=== PATIENT | female | born 1965 | race Caucasian/White ===

== ENCOUNTER 2020-03-13 04:10 | Emergency (ER) | payer BC, SELFPAY ==
[2020-03-13 04:22] LABS: Appearance Urine Sl Cloudy (Clear); Bilirubin Urine Negative (Negative); Color Urine Yellow (Yellow); Glucose Urine UA Negative (Negative); Ketones Urine Negative (Negative); Leukocyte Esterase Ur 3+ LEU/UL (Negative); Nitrate Urine Negative (Negative); Protein Urine Negative (Negative); Specific Grav Ur <= 1.005 (1.010-1.020); Urobilinogen Urine 0.2 mg/dL (0.2-1.0)
[2020-03-13 04:23] VITALS: BP 140/77; PULSE 68; RESP 16; TEMP 36.8; O2SAT 98
[2020-03-13 04:29] LABS: Add Urine Microscopic? YES; Bacteria Urine 1+ /hpf; Blood Urine Trace-Intact (Negative); RBC Urine 0-2 /hpf (0-2); Squamous Epithelial Cell Urine None seen /hpf (Few); WBC Urine >75 /hpf (0-3)
--- NOTE | 2020-03-13 04:49 | ED.FEMALEGU ---
HPI - Female Genitourinary General Chief complaint: Urogenital-Female Stated complaint: Urinary symptoms Source: patient Mode of arrival: ambulatory Limitations: no limitations History of Present Illness HPI Narrative: pt states symptoms started 2 weeks ago. Saw PMD this week and had urinalysis, but hasnt heard from office yet. no feveres no N/v MD elicited complaint: dysuria and UTI Onset (ago): week(s) Vaginal discharge: none Vaginal bleeding: none Urinary symptoms: Dysuria Exacerbating factors: none Relieving factors: none Associated symptoms: denies other symptoms Related Data Allergies Allergy/AdvReac Type Severity Reaction Status Date / Time No Known Allergies Allergy Unverified 02/17/18 09:50 Review of Systems Constitutional: Constitutional: Reports no additional constitutional complaints Eyes: Eyes: Reports no additional eye complaints ENT: Reports system reviewed and no additional complaints, except as documented Cardiovascular: Cardiovascular: Reports no additional cardiovascular complaints Respiratory: Respiratory: Reports no additional respiratory complaints Gastrointestinal: Gastrointestinal: Reports no additional gastrointestinal complaints, Reports abdominal pain, Denies constipation, Denies diarrhea, Denies nausea and Denies vomiting Genitourinary: Genitourinary: Denies abnormal vaginal bleeding, Reports nocturia, Denies genital lesions, Reports dysuria, Denies pelvic pain, Denies urinary incontinence and Denies vaginal discharge Musculoskeletal: Musculoskeletal: Reports no additional musculoskeletal complaints Neurologic: Reports system reviewed and no additional complaints, except as documented Psychiatric: Psychiatric: Reports no additional psychiatric complaints Endocrine: Endocrine: Reports no additional endocrine complaints Hematologic/Lymphatic: Hematologic/Lymphatic: Reports no additional hematologic/lymphatic complaints Allergic/Immunologic: Allergic/Immunologic: Reports no additional allergic/immunologic complaints [facility] Past Medical History Medical History (Updated 03/13/20 @ 04:54 by Alice Stewart MD) UTI (urinary tract infection) Social History Social History Smoking status: Never smoker Alcohol intake: never Exam Const: General: no acute distress and alert Orientation/consciousness: patient oriented x3 HENMT: Head: normal to inspection Eyes: Conjunctivae: conjunctivae normal Pupils: Equal, round and reactive pupils present Chest: Chest palpation & inspection: normal inspection of the chest Resp: Effort & Inspection: normal respiratory effort Auscultation: clear to auscultation bilaterally Cardio: Rate: regular rate Rhythm: regular rhythm GI: GI Palp: Yes Soft to palpation, Yes Tenderness to palpation present (GI) (mild superpubic) and No Guarding due to palpation present (GI) Auscultation: normal bowel sounds : General: Yes no CVA tenderness Back/Spine/Pelvis: Back: no CVA tenderness Skin: General skin exam: normal color Neuro: General: patient oriented x3 and moves all extremities Speech: normal speech Extrem: General: normal to inspection Psych: Mental Status: mental status grossly normal Thought content: Yes Normal thought content present Judgement: Good judgement present (Psych) Course Vital Signs Vital signs: Vital Signs Temperature 36.8 C 03/13/20 04:23 Pulse Rate 68 03/13/20 04:23 Respiratory Rate 16 03/13/20 04:23 Blood Pressure 140/77 03/13/20 04:23 Pulse Oximetry 98 03/13/20 04:23 Temperature 36.8 C 03/13/20 04:23 Pulse Rate 68 03/13/20 04:23 Respiratory Rate 16 03/13/20 04:23 Blood Pressure 140/77 03/13/20 04:23 Pulse Oximetry 98 03/13/20 04:23 MDM - Female Genitourinary Differential Diagnosis Differential diagnosis: Likely urinary tract infection Lab Data Labs: Lab Results 03/13/20 Range/Units 04:19 Ur
== END 2020-03-13 05:06 | disposition home or self-care (01) ==
PROVIDERS: Emergency Provider Emergency Medicine; PCP Internal Medicine
DX: N39.0 Urinary tract infection, site not specified (principal)
CPT/HCPCS: 81001; 87077; 87086; 87088; 87186; 99283

== ENCOUNTER 2020-07-27 07:57 | Outpatient (CLI) | payer BC, SELFPAY ==
--- NOTE | ~2020-07-27 | XR_ITS ---
XR foot LT min 3V 07/27/2020 08:53 Indication: Left foot pain Procedure: 4 views left foot Comparison: No prior studies for comparison. Findings: Mild osteoarthritis of the fifth first MTP joint. Normal mineralization. Lisfranc joint int act. No acute fracture or traumatic malalignment. Small degenerative calcaneal enthesophytes. Mild os teoarthritis of the midfoot. 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 Reviewed, dictated and finalized at location A. 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
--- NOTE | ~2020-07-27 | XR_ITS ---
XR lumbar spine 2-3V 07/27/2020 08:54 Indication: Low back pain for 2 months. Procedure: 3 views lumbar spine Comparison: 08/12/2018 Findings: There is mild disc narrowing at L2-3 and L3-4. There are facet hypertrophic changes at L3-4 , L4-5 and L5-S1. No fracture or traumatic malalignment. No evidence for spondylolisthesis. Pedicles intact. Impression: 1: Mild-moderate lumbar spondylosis. Reviewed, dictated and finalized at location A. K RANDER Impression: 1: Mild-moderate lumbar spondylosis.
--- NOTE | ~2020-07-27 | XR_ITS ---
XR hip RT min 2V 07/27/2020 08:53 Indication: Right hip pain Procedure: 2 views right hip Comparison: No prior studies for comparison. Findings: Mild-moderate osteoarthritis of the right hip. No fracture or traumatic malalignment. Sacra l foramen are symmetric. Mild osteitis pubis. Impression: 1: Mild-moderate osteoarthritis of the right hip. Reviewed, dictated and finalized at location A. UNITY ASSOCIATE Impression: 1: Mild-moderate osteoarthritis of the right hip.
[2020-07-27 08:20] LABS: Hematocrit 40.7 % (35.0-49.0); Hemoglobin 13.4 g/dL (12.0-15.0); Mean Corpuscular HGB Conc 32.9 g/dL (32.0-36.0); Mean Corpuscular Hemoglobin 30.7 pg (27.0-31.0); Mean Corpuscular Volume 93.1 fL (78.0-102.0); Mean Platelet Volume 9.7 fl (9.2-11.8); Platelet Count Result 320 K/mm3 (150-420); Red Blood Count 4.37 M/mm3 (4.20-5.40); Red Cell Distribution Width 12.2 % (11.6-14.4); White Blood Count 3.7 K/mm3 (4.8-10.8)
[2020-07-27 08:22] LABS: Add Urine Microscopic? NO; Appearance Urine Clear (Clear); Bilirubin Urine Negative (Negative); Blood Urine Negative (Negative); Color Urine Yellow (Yellow); Glucose Urine UA Negative (Negative); Ketones Urine Negative (Negative); Leukocyte Esterase Ur Negative (Negative); Nitrate Urine Negative (Negative); Protein Urine Negative (Negative); Specific Grav Ur 1.015 (1.010-1.020); Urobilinogen Urine 0.2 mg/dL (0.2-1.0)
[2020-07-27 09:10] LABS: Band Neutrophils Percent 0 % (0-6); Basophils Percent Manual 0 % (0-1); Eosinophils Absolute Manual 0.11 K/mm3 (0.02-0.5); Eosinophils Percent Manual 3 % (1-6); Lymphocytes Absolute Manual 1.22 K/mm3 (1.1-4.5); Lymphocytes Percent Manual 33 % (18-44); Monocytes Percent Manual 11 % (3-9); Neutrophils Absolute Manual 1.96 K/mm3 (1.7-7.2); Neutrophils Percent Manual 53 % (46-73); Platelet Estimate Adequate (Adequate); Total Cells Counted 100
[2020-07-27 09:23] LABS: Alanine Aminotransferase 15 U/L (14-59); Albumin Level 3.8 g/dL (3.4-5.0); Alkaline Phosphatase 116 U/L (46-116); Anion Gap 9 mmol/L (8-16); Aspartate Amino Transferase 11 U/L (15-37); Bilirubin,Total 0.5 mg/dL (0.00-1.00); Blood Urea Nitrogen 17 mg/dL (7-18); Calcium 9.3 mg/dL (8.5-10.1); Carbon Dioxide 27 mmol/L (21-32); Chloride 105 mmol/L (98-108); Cholesterol 252 mg/dL (0-200); Estimated Glomerular Filt Rate > 60; Glucose 95 mg/dL (70-99); HDL Direct 58 mg/dL (40-60); LDL Cholesterol Calculated 174 mg/dL (<130); Osmolality Calculated 293 mOsm/kg (285-295); Potassium 4.5 mmol/L (3.5-5.1); Sodium 141 mmol/L (136-145); Thyroid Stimulating Hormone 1.55 uIU/mL (0.36-3.74); Total Protein 7.3 g/dL (6.4-8.2); Triglycerides 100 mg/dL (0-150)
== END 2020-07-27 07:58 | disposition home or self-care (01) ==
PROVIDERS: PCP Internal Medicine; Visit Provider Internal Medicine
DX: M79.672 Pain in left foot (principal); M25.551 Pain in right hip; M54.5 Low back pain; Z00.00 Encounter for general adult medical examination without abnormal findings
CPT/HCPCS: 36415; 72100; 73502; 73630; 80053; 80061; 81003; 84443; 85025

== ENCOUNTER 2020-09-16 17:05 | Outpatient (CLI) | payer BC, SELFPAY ==
[2020-09-16 18:26] LABS: SARS-CoV-2 Ag Positive (Negative)
== END 2020-09-16 17:06 | disposition home or self-care (01) ==
LOC: CHSLAB 17:10
PROVIDERS: PCP Internal Medicine; Visit Provider Internal Medicine
DX: U07.1 COVID-19 (principal)
CPT/HCPCS: 87426; C9803

== ENCOUNTER → 2020-11-08 13:50 | Outpatient (CLI) | payer BC, SELFPAY ==
--- NOTE | ~2020-11-08 | MM_ITS ---
EXAMINATION: MM screening [facility] BI w marbin HISTORY: Screening TECHNIQUE: Craniocaudal and mediolateral oblique 3-D tomosynthesis images were obtained and synthetic 2-D images were generated. CAD analysis was submitted and interpreted. COMPARISON: Comparison to multiple prior studies sequentially, with oldest reviewed study dated 02/2014. BREAST PARENCHYMAL COMPOSITION: There are scattered areas of fibroglandular density. FINDINGS: There is no evidence of suspicious mass, calcification, or architectural distortion to sugg est malignancy in either breast. There has been no suspicious interval change. IMPRESSION: 1. No mammographic evidence of malignancy. 2. Recommend routine screening mammography in one year. BI-RADS Category 1: Negative Reviewed, dictated and finalized at location A.
== END ==
PROVIDERS: PCP Internal Medicine; Visit Provider Obstetrics & Gynecology
DX: Z12.31 Encounter for screening mammogram for malignant neoplasm of breast (principal)
CPT/HCPCS: 77063; 77067

== ENCOUNTER 2021-08-12 13:41 | Outpatient (RCR) | payer BC, SELFPAY ==
--- NOTE | 2021-08-12 14:41 | PTOPEVAL ---
Thank you for referring Ruma Copeland to [facility].? The patient is scheduled to be seen for therapy? ____x/week for ___ weeks. Please review, sign, date and return this plan of care NEAL. I agree with and certify that the following plan of care is medically necessary. Referring Physician Date Admitting Provider: Attending Provider: Haroon Van, MD Referring Provider: *PT Outpatient Evaluation Start: 08/12/21 13:48 Freq: Status: Active Protocol: Document 08/12/21 13:48 ACR (Rec: 08/12/21 14:41 ACR [id number]) Therapy Assessment Status Assessment Status Assessment Status Evaluation Evaluation Information Problem Diagnosis low back pain Onset 07/13/21 Subjective Information Patient states that she Query Text:As Reported By Patient/ started having some back pain Family about a year ago and was told it was arthrtis. She states that she bent down to cook pickled meat a child and had difficulty getting up. She states that she has difficulty getting up from a seated position especially when in a car. She states that walking or standing for a period of time do not bother her. She states that she has difficulty with sleeping because it is constantly throbbing. Patient states that she also has some hip pain on the L but it comes and goes. Prior Level of Function Activity Level (Last 3 Months) Occupation daycare picking crew supervisor Hand Dominance Right Activity of Daily Living Ability Independent Indoor/Home Mobility Independent Community Mobility Independent Stairs Ability Independent Functional Cognition (Planning, Shopping Independent , Taking Medications) Cooking Yes Cleaning Yes Laundry Yes Shopping Yes Driving Yes Pain Assessment Timing of Pain Assessment Timing of Pain Assessment Assessment Pain Scale Pain Scale Used Numeric (1 - 10) Self Report Pain Assessment Lower Back Reported Pain Level 7 Pain Description Sharp,Shooting Greatest Pain Intensity 10 Pain Score Pain Score 7: Self Report Interventions Used Interventions Used By Clinicians
== END 2021-08-21 08:45 | disposition home or self-care (01) ==
LOC: CHSPT 13:41
PROVIDERS: PCP Family Medicine; Visit Provider Family Medicine
DX: M54.50 Low back pain, unspecified (principal)
CPT/HCPCS: 97014; 97110; 97161; G0283

== ENCOUNTER → 2021-08-19 15:35 | Outpatient (CLI) | payer BC, SELFPAY ==
--- NOTE | ~2021-08-19 | XR_ITS ---
EXAMINATION: XR lumbar spine 2-3V DATE: 08/19/2021 15:54 INDICATION: Low back pain TECHNIQUE: Anteroposterior and lateral views of the lumbar spine, and cone-down lateral view of the l umbosacral junction were obtained. COMPARISON: 07/27/2020 FINDINGS: There is no fracture, dislocation, or subluxation. The vertebral body heights and alignment are normal. There is mild loss of intervertebral disc space height throughout the lumbar spine. Ther e is moderate facet osteoarthritis of the lower lumbar spine. Small degenerative osteophytes project from the anterior endplates of multiple vertebral bodies. Phleboliths are noted in the pelvis. IMPRESSION: 1. Mild lumbar spondylosis without acute findings or significant interval change. Reviewed, dictated and finalized at location F. RAM MANAGEMENT SPECIALIST IMPRESSION: 1. Mild lumbar spondylosis without acute findings or significant interval miner zia
== END ==
PROVIDERS: PCP Family Medicine; Visit Provider Family Medicine
DX: M54.50 Low back pain, unspecified (principal); M47.816 Spondylosis without myelopathy or radiculopathy, lumbar region
CPT/HCPCS: 72100

== ENCOUNTER 2022-09-10 18:10 | Outpatient (CLI) | payer BC, SELFPAY ==
[2022-09-10 19:04] LABS: SARS-CoV-2 RNA PCR Positive (Negative)
== END 2022-09-10 18:11 | disposition home or self-care (01) ==
LOC: CHSLAB 18:11
PROVIDERS: PCP Internal Medicine; Visit Provider Internal Medicine
DX: U07.1 COVID-19 (principal); J06.9 Acute upper respiratory infection, unspecified
CPT/HCPCS: U0003; U0005

== ENCOUNTER 2022-09-26 07:04 | Outpatient (CLI) | payer BC, SELFPAY ==
--- NOTE | ~2022-09-26 | XR_ITS ---
EXAMINATION: XR chest 2V DATE: 09/26/2022 07:29 INDICATION: Fatigue TECHNIQUE: PA and lateral views of the chest are obtained. COMPARISON: 12/24/2017 FINDINGS: There is mild atelectasis of the lower lobes. No pleural effusion or pneumothorax. The card iomediastinal silhouette is normal. There is mild thoracic spondylosis. IMPRESSION: 1. Mild atelectasis of the lower lobes. Reviewed, dictated and finalized at location A. ECTOR RECEIVING
[2022-09-26 07:21] LABS: Basophils Absolute Auto 0.04 K/mm3 (0.00-0.10); Basophils Percent Auto 0.7 % (0.0-1.0); Eosinophils Absolute Auto 0.31 K/mm3 (0.02-0.50); Eosinophils Percent Auto 5.2 % (1.0-6.0); Hematocrit 39.6 % (35.0-49.0); Hemoglobin 12.9 g/dL (12.0-15.0); Immature Granulocyte Absolute 0.01 K/mm3 (0.00-0.00); Immature Granulocyte Percent A 0.2 % (0.0-0.0); Lymphocytes Absolute Auto 1.42 K/mm3 (1.10-4.50); Lymphocytes Percent Auto 23.9 % (18.0-42.0); Mean Corpuscular HGB Conc 32.6 g/dL (32.0-36.0); Mean Corpuscular Hemoglobin 30.9 pg (27.0-31.0); Mean Corpuscular Volume 94.7 fL (78.0-102.0); Mean Platelet Volume 9.3 fl (9.2-11.8); Monocytes Absolute Auto 0.51 K/mm3 (0.10-0.90); Monocytes Percent Auto 8.6 % (2.0-11.0); Neutrophils Absolute Auto 3.6 K/mm3 (1.7-7.2); Neutrophils Percent Auto 61.4 % (50.0-70.0); Platelet Count Result 334 K/mm3 (150-420); Red Blood Count 4.18 M/mm3 (4.20-5.40); Red Cell Distribution Width 12.8 % (11.6-14.4); White Blood Count 5.9 K/mm3 (4.8-10.8)
[2022-09-26 07:33] LABS: Bilirubin Urine Negative (Negative); Blood Urine Trace-Intact (Negative); Glucose Urine UA Negative (Negative); Ketones Urine Negative (Negative); Leukocyte Esterase Ur Negative (Negative); Nitrate Urine Positive (Negative); Protein Urine Negative (Negative); Urobilinogen Urine 0.2 mg/dL (0.2-1.0)
[2022-09-26 07:37] LABS: Add Urine Microscopic? YES; Appearance Urine Slightly Cloudy (Clear); Bacteria Urine 3+ /hpf; Color Urine Yellow (Yellow); RBC Urine None seen /hpf (0-2); Squamous Epithelial Cell Urine Occasional /hpf (Few); WBC Urine 51-75 /hpf (0-3)
[2022-09-26 08:09] LABS: Alanine Aminotransferase 18 U/L (14-59); Albumin Level 3.8 g/dL (3.4-5.0); Alkaline Phosphatase 99 U/L (46-116); Anion Gap 5 mmol/L (8-16); Aspartate Amino Transferase 15 U/L (15-37); Bilirubin,Total 0.5 mg/dL (0.00-1.00); Blood Urea Nitrogen 12 mg/dL (7-18); Carbon Dioxide 32 mmol/L (21-32); Chloride 105 mmol/L (98-108); Cholesterol 267 mg/dL (0-200); Estimated Glomerular Filt Rate > 60; Free T3 2.65 pg/mL (2.18-3.98); Free T4 Free Thyroxine 0.75 ng/dL (0.76-1.46); Glucose 90 mg/dL (70-99); HDL Direct 71 mg/dL (40-60); LDL Cholesterol Calculated 177 mg/dL (<130); Osmolality Calculated 293 mOsm/kg (285-295); Potassium 4.8 mmol/L (3.5-5.1); Sodium 142 mmol/L (136-145); Thyroid Stimulating Hormone 1.99 uIU/mL (0.36-3.74); Total Protein 7.2 g/dL (6.4-8.2); Triglycerides 97 mg/dL (0-150)
[2022-09-26 08:10] LABS: CRP < 0.5 mg/dL (0.0-0.9)
== END 2022-09-26 07:05 | disposition home or self-care (01) ==
LOC: CHSIMG 07:06
PROVIDERS: PCP Internal Medicine; Visit Provider Internal Medicine
DX: R53.83 Other fatigue (principal); L65.9 Nonscarring hair loss, unspecified; J98.11 Atelectasis
CPT/HCPCS: 36415; 71046; 80053; 80061; 81001; 84439; 84443; 84481; 85025; 86140

== ENCOUNTER → 2023-07-24 10:44 | Outpatient (CLI) | payer BC, SELFPAY ==
--- NOTE | ~2023-07-24 | MM_ITS ---
EXAMINATION: MM screening [facility] BI w marbin HISTORY: Screening mammogram TECHNIQUE: Craniocaudal and mediolateral oblique 3-D tomosynthesis images were obtained and synthetic 2-D images were generated. CAD analysis was submitted and interpreted. COMPARISON: 11/08/2020, 08/10/2019, 08/03/2018 BREAST PARENCHYMAL COMPOSITION: There are scattered areas of fibroglandular density. FINDINGS: No suspicious mass, calcification, or architectural distortion are identified in either neetu ast to suggest malignancy. There has been no suspicious interval change. IMPRESSION: 1. No mammographic evidence of malignancy. 2. Recommend routine screening mammography in one year. BI-RADS Category 1: Negative Reviewed, dictated and finalized at location A. S SUPPORT ASSOCIATE
== END ==
PROVIDERS: PCP Obstetrics & Gynecology; Visit Provider Obstetrics & Gynecology
DX: Z12.31 Encounter for screening mammogram for malignant neoplasm of breast (principal)
CPT/HCPCS: 77063; 77067

== ENCOUNTER 2023-10-02 08:27 | Outpatient (CLI) | payer BC, SELFPAY ==
[2023-10-02 08:47] LABS: Basophils Absolute Auto 0.05 K/mm3 (0.00-0.10); Basophils Percent Auto 1.2 % (0.0-1.0); Eosinophils Absolute Auto 0.27 K/mm3 (0.02-0.50); Eosinophils Percent Auto 6.3 % (1.0-6.0); Hematocrit 41.2 % (35.0-49.0); Hemoglobin 13.4 g/dL (12.0-15.0); Immature Granulocyte Absolute 0.01 K/mm3 (0.00-0.00); Immature Granulocyte Percent A 0.2 % (0.0-0.0); Lymphocytes Percent Auto 32.9 % (18.0-42.0); Mean Corpuscular HGB Conc 32.5 g/dL (32.0-36.0); Mean Corpuscular Hemoglobin 30.7 pg (27.0-31.0); Mean Corpuscular Volume 94.3 fL (78.0-102.0); Mean Platelet Volume 9.4 fl (9.2-11.8); Monocytes Absolute Auto 0.44 K/mm3 (0.10-0.90); Monocytes Percent Auto 10.3 % (2.0-11.0); Neutrophils Absolute Auto 2.1 K/mm3 (1.7-7.2); Neutrophils Percent Auto 49.1 % (50.0-70.0); Platelet Count Result 348 K/mm3 (150-420); Red Blood Count 4.37 M/mm3 (4.20-5.40); Red Cell Distribution Width 12.4 % (11.6-14.4); White Blood Count 4.3 K/mm3 (4.8-10.8)
[2023-10-02 08:56] LABS: Hemoglobin A1C 5.4 % (<5.7)
[2023-10-02 09:12] LABS: Alanine Aminotransferase 20 U/L (14-59); Albumin Level 3.8 g/dL (3.4-5.0); Alkaline Phosphatase 103 U/L (46-116); Anion Gap 6 mmol/L (8-16); Aspartate Amino Transferase 12 U/L (15-37); Bilirubin,Total 0.6 mg/dL (0.00-1.00); Blood Urea Nitrogen 11 mg/dL (7-18); Calcium 8.9 mg/dL (8.5-10.1); Carbon Dioxide 31 mmol/L (21-32); Chloride 104 mmol/L (98-108); Cholesterol 228 mg/dL (0-200); Estimated Glomerular Filt Rate > 60; Glucose 92 mg/dL (70-99); HDL Direct 80 mg/dL (40-60); LDL Cholesterol Calculated 136 mg/dL (<130); Osmolality Calculated 291 mOsm/kg (285-295); Potassium 4.7 mmol/L (3.5-5.1); Sodium 141 mmol/L (136-145); Thyroid Stimulating Hormone 1.77 uIU/mL (0.36-3.74); Total Protein 6.9 g/dL (6.4-8.2); Triglycerides 59 mg/dL (0-150)
== END 2023-10-02 08:28 | disposition home or self-care (01) ==
PROVIDERS: PCP Internal Medicine; Visit Provider Internal Medicine
DX: Z00.00 Encounter for general adult medical examination without abnormal findings (principal); I10 Essential (primary) hypertension; R63.1 Polydipsia
CPT/HCPCS: 36415; 80053; 80061; 83036; 84443; 85025

== ENCOUNTER 2023-10-06 07:24 | Emergency (ER) | payer BC, SELFPAY ==
--- NOTE | ~2023-10-06 | CT_ITS ---
EXAMINATION: CT abdomen pelvis w con DATE: 10/06/2023 09:11 INDICATION: Severe upper abdominal pain TECHNIQUE: Computed tomography (CT) of the abdomen and pelvis was performed with 100 CC Omnipaque 350 intravenous contrast. Automated exposure control and iterative reconstruction technique were employe d. Exam dose: 400.63 mGy-cm total exam DLP. COMPARISON: 08/17/2018 CT abdomen pelvis FINDINGS: Bilateral fat-containing foramen of Bochdalek hernias. The lung bases are clear of infiltrate or consolidation. Normal heart size. No pericardial or pleural effusion. Large sliding hiatal hernia. Probable duodenal diverticulum. The liver, gallbladder, bile ducts, pancreas, pancreatic duct, spleen, and adrenal glands and kidneys are unremarkable. No urinary tract calculus or hydroureteronephrosis. The urinary bladder, uterus an d adnexal areas are unremarkable. Normal caliber of the abdominal aorta. No intraperitoneal or retroperitoneal or pelvic mass lesion or adenopathy or ascites. No evidence of appendicitis. There is mild thickening of the wall of the mid to distal small bowel with mucosal enhancement. Liqui d stool is noted in the right colon. Consider infectious or inflammatory enterocolitis. No bowel obstruction or intraperitoneal free air.. Bilateral hip osteoarthritis. Degenerative spurring of the thoracic and lumbar spine. There is prominent degenerative changes at th e apophyseal joints of the lower lumbar and lumbosacral area. No suspicious osteolytic or osteoblasti c lesions are noted. IMPRESSION: Large sliding hiatal hernia, increased in size since 08/17/2018 Mild mid to distal small bowel wall thickening and mucosal enhancement, liquid stool in the right col on; consider infectious or inflammatory enterocolitis No evidence of appendicitis Reviewed, dictated and finalized at Location A. Reviewed, dictated and finalized at location B. KTOP PAVER OPERATOR IMPRESSION: Large sliding hiatal hernia, increased in size since 08/17/2018 Mild mid to distal small bowel wall thickening and mucosal enhancement, liquid stool in the right colon; consider infectious or inflammatory enterocolitis No evidence of appendicitis
[2023-10-06 07:29] VITALS: BP 145/88; PULSE 79; RESP 16; O2SAT 100
[2023-10-06 07:38] VITALS: TEMP 36.4
--- NOTE | 2023-10-06 07:40 | ECG_ITS ---
Measurements Intervals [place] Rate: 74 P: 45 CT: 145 QRS: 32 QRSD: 82 T: 48 QT: 386 QTc: 429 Interpretive Statements SINUS RHYTHM NORMAL ECG NO PREVIOUS ECG AVAILABLE FOR COMPARISON Electronically Signed On 10-06-2023 11:52:35 APPOINTMENT SCHEDULER by Fei Disla M.D.
[2023-10-06 07:58] LABS: Basophils Absolute Auto 0.1 K/mm3 (0.0-0.1); Basophils Percent Auto 0.4 % (0.2-1.2); Eosinophils Absolute Auto 0.2 K/mm3 (0-0.3); Eosinophils Percent Auto 1.4 % (0-4.4); Hematocrit 43.1 % (37.0-47.0); Hemoglobin 14.2 g/dL (12.0-15.0); Immature Granulocyte Absolute 0.05 K/mm3 (0.00-0.031); Immature Granulocyte Percent A 0.4 % (0-0.5); Lymphocytes Absolute Auto 0.96 K/mm3 (0.9-3.2); Lymphocytes Percent Auto 6.9 % (18.3-44.2); Mean Corpuscular HGB Conc 32.9 g/dl (32-36); Mean Corpuscular Hemoglobin 31.1 pg (26-34); Mean Corpuscular Volume 94.3 fl (80-100); Mean Platelet Volume 9.6 fl (7.4-10.4); Monocytes Percent Auto 6.9 % (2.6-8.5); Neutrophils Absolute Auto 11.7 K/mm3 (1.3-6.7); Platelet Count Result 346 k/mm3 (150-375); Red Blood Count 4.57 M/mm3 (4.2-5.4); Red Cell Distribution Width 12.3 % (11.5-14.5); White Blood Count 13.9 K/mm3 (4.5-10.0)
[2023-10-06 08:07] LABS: Alanine Aminotransferase 16 U/L (6-35); Albumin Level 4.2 g/dL (3.5-5.1); Alkaline Phosphatase 107 U/L (38-126); Anion Gap 6 mmol/L (8-16); Aspartate Amino Transferase 28 U/L (14-36); Blood Urea Nitrogen 17 mg/dL (7-17); Calcium 9.9 mg/dL (8.4-10.2); Carbon Dioxide 25 mmol/L (22-30); Chloride 105 mmol/L (98-107); Estimated Glomerular Filt Rate > 60; Glucose 113 mg/dL (65-110); Lipase 77 U/L (23-300); Potassium 4.2 mmol/L (3.4-5.0); Sodium 136 mmol/L (137-145)
--- NOTE | 2023-10-06 09:20 | ED.ABDPAIN ---
HPI - Abdominal Pain General Chief Complaint: Abdominal Pain Stated Complaint: super sick Time Seen by Provider: 10/06/23 07:44 History of Present Illness HPI narrative: patient is a 4-year-old female who presents ER with abdominal cramping and pain. Began early this morning. Makes her feel like she needs use restroom. When she was sitting on the toilet she lost consciousness. No fevers or chills or sweats. No radiation to the back. No history of abdominal surgery. No urinary frequency urgency or dysuria. Denies chest pain. Has not found any alleviating factors. Patient does work at a daycare. Related Data Allergies Allergy/AdvReac Type Severity Reaction Status Date / Time No Known Allergies Allergy Verified 10/06/23 07:35 Review of Systems Review of Systems: All systems reviewed & are unremarkable except as noted in HPI and below Constitutional: Constitutional: Reports no additional constitutional complaints ENT: Reports system reviewed and no additional complaints, except as documented Cardiovascular: Cardiovascular: Reports no additional cardiovascular complaints Respiratory: Respiratory: Reports no additional respiratory complaints Gastrointestinal: Gastrointestinal: Reports abdominal pain, Denies diarrhea, Reports nausea and Denies vomiting Neurologic: Reports syncope, Denies headache(s), Denies focal weakness and Denies numbness PMFSH Past Medical History Medical History UTI (urinary tract infection) Surgical History Surgical History History of ear surgery Social History Social History Smoking status: Never smoker Alcohol intake: never Exam Narrative: GENERAL: Uncomfortable-appearing, well-nourished, and in no acute distress. HEAD: Normocephalic, atraumatic. ENT: Nares clear, no rhinorrhea or epistaxis. Mucous membranes moist. NECK: Supple. CHEST: Clear to auscultation. No respiratory distress. HEART: Regular rate and rhythm. Normal peripheral pulses. ABDOMEN: Soft, tender to palpation bilateral lower quadrants without guarding, nondistended, normal active bowel sounds. EXTREMITIES: Normal range of motion. No edema. SKIN: Warm, dry, no rash. NEURO: Alert and oriented x3. PSYCH: Normal mood and affect. Course Course Emergency Course: Patient more comfortable. Hydrate. Informed of results. Discharge home with supportive care. Also discussed hiatal hernia. Vital Signs Vital signs: Vital Signs Pulse Rate 79 10/06/23 07:29 Respiratory Rate 16 10/06/23 07:29 Blood Pressure 145/88 H 10/06/23 07:29 Pulse Oximetry 100 10/06/23 07:29 Oxygen Delivery Room Air 10/06/23 07:29 Temperature 97.6 F 10/06/23 07:38 Pulse Rate 79 10/06/23 07:29 Respiratory Rate 16 10/06/23 07:29 Blood Pressure 145/88 H 10/06/23 07:29 Pulse Oximetry 100 10/06/23 07:29 Oxygen Delivery Room Air 10/06/23 07:29 MDM - Abdominal Pain Lab Data 10/06/23 07:49 10/06/23 07:49 Labs: Lab Results 10/06/23 Range/Units 07:49 WBC 13.9 H (4.5-10.0) K/mm3 RBC 4.57 (4.2-5.4) M/mm3 Hgb 14.2 (12.0-15.0) g/dL Hct 43.1 (37.0-47.0) % MCV 94.3 (80-100) fl MCH 31.1 (26-34) pg MCHC 32.9 (32-36) g/dl RDW 12.3 (11.5-14.5) % Plt Count 346 (150-375) k/mm3 MPV 9.6 (7.4-10.4) fl Immature Gran % (Auto) 0.4 (0-0.5) % Neut % (Auto) 84.0 H (45.5-73.1) % Lymph % (Auto) 6.9 L (18.3-44.2) % Crisp % (Auto) 6.9 (2.6-8.5) % Eos % (Auto) 1.4 (0-4.4) % Baso % (Auto) 0.4 (0.2-1.2) % Lymph # (Auto) 0.96 (0.9-3.2) K/mm3 Crisp # (Auto) 1.0 H (0.1-0.6) K/mm3 Eos # (Auto) 0.2 (0-0.3) K/mm3 Baso # (Auto) 0.1 (0.0-0.1) K/mm3 Abs Immat Gran (auto) 0.05 H (0.00-0.031) K/mm3 Absolute Neuts (auto) 11.7 H (1.3-6.7) K/mm3 Absolute N
[2023-10-06] MEDS: ONDANSETRON INJ 4 MG/2 ML VIAL IV PUSH (09:31)
[2023-10-06] MEDS: MORPHINE SULFATE (*CRX) 4 MG/ML INJ IV PUSH (09:31)
[2023-10-06] MEDS: SODIUM CHLORIDE 0.9% IV 1,000 ML 999 ML IV CONT (09:32)
[2023-10-06 10:45] VITALS: BP 122/64; PULSE 101; RESP 18; O2SAT 100
[2023-10-06 10:51] LABS: Appearance Urine Clear (Clear); Bacteria Urine 4+ /hpf; Bilirubin Urine Negative (Negative); Blood Urine Negative (Negative); Color Urine Yellow (Yellow); Glucose Urine UA Negative (Negative); Ketones Urine Negative (Negative); Leukocyte Esterase Ur 1+ LEU/UL (Negative); Nitrate Urine Positive (Negative); Non Pathogenic Casts 0-2; Protein Urine Negative (Negative); RBC Urine 0-2 /hpf (0-2); Squamous Epithelial Cell Urine None seen /hpf (Few); Urobilinogen Urine 0.2 mg/dL (<2.0); pH Urine 8.5 (5.0-9.0)
[2023-10-06 10:52] LABS: Specific Grav Ur 1.036 (1.001-1.035)
[2023-10-06 10:53] LABS: Add Urine Microscopic? YES
== END 2023-10-06 10:46 | disposition home or self-care (01) ==
PROVIDERS: Emergency Provider Emergency Medicine; PCP Internal Medicine
DX: R55 Syncope and collapse (principal); K52.9 Noninfective gastroenteritis and colitis, unspecified
CPT/HCPCS: 36415; 74177; 80053; 81001; 83690; 85025; 87077; 87086; 87186; 93005; 96361; 96374; 96375; 99284; J2270; J2405; J7030; Q9967

== ENCOUNTER 2023-12-20 16:40 | Outpatient (CLI) | payer BC, SELFPAY ==
--- NOTE | ~2023-12-20 | XR_ITS ---
Right Knee Technique: AP, lateral, and sunrise views were obtained. Clinical History: Pain Findings: No fracture or dislocation is seen. Osseous alignment is anatomic. Minimal degenerative spu rring noted about the knee. Soft tissues are unremarkable. No joint effusion is seen. Impression: Minimal degenerative spurring throughout the knee. Reviewed, dictated and finalized at [facility]. Impression: Minimal degenerative spurring throughout the knee.
== END 2023-12-20 16:41 | disposition home or self-care (01) ==
PROVIDERS: PCP Internal Medicine; Visit Provider Internal Medicine
DX: M25.561 Pain in right knee (principal); M76.891 Other specified enthesopathies of right lower limb, excluding foot
CPT/HCPCS: 73564

== ENCOUNTER 2024-09-30 08:34 | Outpatient (CLI) | payer BC, SELFPAY ==
--- NOTE | ~2024-09-30 | XR_ITS ---
EXAM: XR lumbar spine 2-3V DATE: 09/30/2024 08:59 HISTORY: LBP radiates into Rt. hip, NKI . COMPARISON: 08/19/2021. FINDINGS: 5 nonrib-bearing lumbar-type vertebral bodies. Pedicles intact. 4 mm anterolisthesis at L4-5. 2 mm anterolisthesis at L5-S1. Vertebral body heights preserved. Multil evel mild degenerative disc narrowing and marginal osteophytosis. Moderate-severe mid and lower lumba r facet arthropathy. No fracture or dislocation. IMPRESSION: Grade 1 anterolisthesis at L4-5 and L5-S1. Multilevel mild degenerative disc disease. Mul tilevel mild-severe lumbar facet arthropathy. Reviewed, dictated and finalized at location [facility] IMPRESSION: Grade 1 anterolisthesis at L4-5 and L5-S1. Multilevel mild degenera tive disc disease. Multilevel mild-severe lumbar facet arthropathy.
--- OUTSIDE RECORDS SUMMARY | 2024-09-30 08:40 | XMS_ITS | Patient Health Record ---
Author Organization [facility] Address [address] [place], [place] [id number] Care Team Providers Care Direct Care Staffer Name Role Phone Virgilio Prabhakar Unavailable Unavailable YONNY MADELYN Unavailable [phone] Allergies No Known Allergies Reason For Referral No Information Vital Signs Height-cm 162.56 cm 10/04/2023 Weight-kg 68.95 kg 10/04/2023 Height 64 in 10/04/2023 Weight 152 lbs 10/04/2023 BMI 26.09 kg/m2 10/04/2023 Encounters Encounter Location Date Provider Diagnosis [facility] [address] [place], [place] [id number] 10/04/2023 MADELYN BLANCAS Ingrowing nail L60.0 ; Other hammer toe(s) (acquired), right foot M20.41 ; Other hammer toe(s) (acquired), left foot M20.42 ; Pain in right foot M79.671 and Left foot pain M79.672 Assessments Encounter Date Diagnosis (ICD Code) Assessment Notes Treatment Notes Treatment Clinical Notes Section Notes 10/04/2023 Ingrowing nail (ICD-10 - L60.0) Slant Back Toenail: Following skin prep, the offending nail border was debrided without anesthesia. The patient was instructed on monitoring for infection or recurrence. 10/04/2023 Other hammer toe(s) (acquired), right foot (ICD-10 - M20.41) Hammertoe Deformity: Discussed various treatments for hammer toes with the patient . Discussed conservative care consisting of padding, wider shoes, anti-inflammatori es, and orthotics. Discussed surgical treatment options and answered all questions about the intra-operative and post-operative treatment course. Shoe Recommendation: Advised patient on appropriate shoe gear for protection, healing and good foot health. PowerStep Inserts: The patient was dispensed and fitted with over the counter arch supports. The patient was educated on their use and effect. All questions were answered. 10/04/2023 Other hammer toe(s) (acquired), left foot (ICD-10 - M20.42) 10/04/2023 Pain in right foot (ICD-10 - M79.671) 10/04/2023 Left foot pain (ICD-10 - M79.672) Plan Of Treatment No Information Insurance Providers Payer Name Payer Address Payer Phone Subscriber Number Group Number Insured Name Patient Relationship to Insured Coverage Start Date Coverage End Date [facility] ([facility]) ATTN CLAIMS [address] [place] [address] [id number] Ruma Copeland Self - patient is the insured
--- OUTSIDE RECORDS SUMMARY | 2024-09-30 08:40 | XMS_ITS | Referral Summary ---
Author Organization [facility] Medical Office Building Address [address] [place] [address] Care Team Providers Care Vaccines Solutions Specialist Name Role Phone Virgilio Prabhakar MD Primary Care Provider [phone] Virgilio Prabhakar MD Unavailable [phone] Allergies No known active allergies Medications cefuroxime (CEFTIN) 250 mg tablet 8 Active HYDROcodone-acet aminophen (NORCO) 5-325 mg per tabletIndication s:Pain TAKE 1 TABLET EVERY 4 TO 6 HOURS NEEDED FOR PAIN. 8 Active fluticasone (FLONASE) 50 mcg/actuation nasal spray Administer 2 sprays into each nostril daily. 1 Inhaler 3 8 Active omeprazole (PriLOSEC) 40 mg capsule 9 Active ciprofloxacin (CIPRO) 500 mg tablet 9 Active HYDROcodone-acet aminophen ([place]) 5-325 mg per tabletIndication s:Pain Take 1 tablet by mouth every 6 (six) hours as needed for pain 15 tablet 0 Active azithromycin (ZITHROMAX) 250 mg tablet 2 Active buPROPion XL (WELLBUTRIN XL) 150 mg 24 hr tablet 2 Active dextroamphetamin e-amphetamine XR (ADDERALL XR) 20 mg 24 hr capsule 2 Active meloxicam (MOBIC) 15 mg tablet 2 Active ciprofloxacin (CIPRO) 250 mg tablet 3 Active propranolol LA (INDERAL LA) 60 mg 24 hr capsule TAKE 1 CAPSULE (60 MG) BY ORAL ROUTE ONCE DAILY AT BEDTIME 3 Active nortriptyline (PAMELOR) 10 mg capsule TAKE 1 CAPSULE BY MOUTH EVERYDAY AT BEDTIME 3 Active nitrofurantoin monohydrate (MACROBID) 100 mg capsule 3 Active amoxicillin 500 mg capsule Take 1 tablet/capsule (500 mg total) by mouth 3 (three) times a day 3 Active predniSONE (DELTASONE) 10 mg tablet Take 6 pills x 2 dys, 5 pills x 2 dys, 4 pills x 2 dys, taper by 1 Q2dys until gone 42 tablet 3 Active ciprofloxacin-de xAMETHasone (CIPRODEX) otic suspension USE 4 DROPS IN RIGHT EAR TWICE A DAY 7.5 mL 2 4 Active amoxicillin-clav ulanate (Augmentin) 875-125 mg per tablet Take 1 tablet by mouth 2 (two) times a day 20 tablet 4 Active methylPREDNISolo ne (MEDROL DOSEPACK) 4 mg Dosepack Take as directed on package 1 packet 4 Active Active Problems Problem Noted Date Diagnosed Date Conductive hearing loss of r ight ear with unrestricted hearing of left ear 02/01/2018 Social History Tobacco Use Types Packs/Day Years Used Date Smoking Tobacco: Never Personal Safety Answer Date Recorded Getting School Help Needed Not on file 08/06 Comments Unknown Sex and Gender Information Value Date Recorded Sex Assigned at Not on file Legal Sex Female 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 [employer]BL[employer] Gender Identity Not on file Sexual Orientation Not on file Last Filed Vital Signs Vital Sign Reading Time Taken Comments Blood Pressure 138/81 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 Pulse 65 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 Temperature 36.6 C (97.9 F) 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 Respiratory Rate - - Oxygen Saturation 99% 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
--- OUTSIDE RECORDS SUMMARY | 2024-09-30 08:40 | XMS_ITS ---
Author Organization [facility] Address [address] [place], [place] [address] Care Team Providers Care Building Construction Contractor Name Role Phone Virgilio Prabhakar Unavailable Unavailable MADELYN BLANCAS Unavailable [phone] Allergies No Known Allergies REASON FOR VISIT Patient reports that the left great toenail is very painful to the touch. Normally she gets a pedicure but she trimmed them herself and now it hurts., She also has 2nd toes of both feet that are drawing up. They can rub against shoes sometimes, but they are not painful Vital Signs Height 64 in 10/04/2023 Weight 152 lbs 10/04/2023 BMI 26.09 kg/m2 10/04/2023 Height-cm 162.56 cm 10/04/2023 Weight-kg 68.95 kg 10/04/2023 Encounters Encounter Location Date Provider Diagnosis [facility] [address] [place], [place] [id number] 10/04/2023 MADELYN BLANCAS Ingrowing nail L60.0 ; [...] pain (ICD-10 - M79.672) Plan Of Treatment Treatment Notes Assessment Notes Ingrowing nail Slant Back Toenail: Following skin prep, the offending nail border was debrided without anesthesia. The patient was instructed on monitoring for infection or recurrence. Other hammer toe(s) (acquired), right fo ot Hammertoe Deformity: Discussed various treatments for hammer toes with the patient . Discussed conservative care consisting of padding, wider shoes, anti-inflammatories, and orthotics. Discussed surgical treatment options and answered all questions about the intra-operative and post-operative treatment course. Shoe Recommendation: Advised patient on appropriate shoe gear for protection, healing and good foot health. PowerStep Inserts: The patient was dispensed and fitted with over the counter arch supports. The patient was educated on their use and effect. All questions were answered. Next Appt Details Follow Up: prn, Reason: Progress Notes * Ruma SHAWDOB:1965 (58 yo F)Acc No.[id number]:10/04/2023 Progress Notes Patient: Ruma PAEZ Provider: Heath Blancas DPM :1965 A ge:58 Y S ex:Female Date:10/04/2023 Address:[address] [place], [place] [id number] Subjective: * Chief Complaints: * 1 . Patient reports that the left great toenail is very painful to the touch. Normally she gets a pedicure but she trimmed them herself and now it hurts.. 2. She also has 2nd toes of both feet that are drawing up. They can rub against shoes sometimes, but they are not painful. * HPI: H PI: New Complaint P atient presents for a new patient consultation., Patient complains of an issue to left G toe pain with pressure, Duration of problem is 3months., MA: EW. * ROS: G eneral / Constitutional: Patient denies c hills, fever, weakness, night sweats, chills, fever, weakness, night sweats. M usculoskeletal: Patient denies c hildhood foot problems, weakness, childhood foot problems, weakness. P eripheral Vascular: Patient denies u lceration of feet, cold extremities, ulceration of feet, cold extremities. S kin: Patient denies u lcerations, discoloration, ulcerations, discoloration. N eurologic: Patient denies b alance difficulty, confusion, difficulty speaking, dizziness, balance difficulty, confusion, difficulty speaking, dizziness. * Medical History: * Allergies: N .K.D.A. Objective: * Vitals: S hoe Size: 7.5, Wt:152lbs, Wt-k.95 kg, Ht: 64 in, Ht-cm: 162.56 cm, BMI:26.09Index, Body Surface Area: 1.76. * Examination: C onstitutional: Constitutional T he patient is awake, alert, well developed, well groomed and well nourished. D ermatologic: Skin findings: S kin is warm, dry, supple with no breaks in the skin. The left hallux has a nail spicule present in the lateral nail fold. ? V ascular: Dorsalis pedis pulse: 2 /4, bilateral . Posterior tibial pulse: 2 /4, bilaterally. Capillary refill: l ess than 3 seconds. Edema: N o edema, bilateral. N eurologic: Gross sensation G ross sensation is intact to light touch.? M usculoskeletal: Muscle Strength M uscle strength is 5/5 in regards to dorsiflexion, plantarflexion, inversion, and eversion in bilateral lower extremities. Hammertoes D orsally contracted digits 2-5 bilateral. The deformity is flexible and reducible. Assessment: * Assessment: 1. I ngrowing nail - L60.0 (Primary) 2 . O ther hammer toe(s) (acquired), right foot - M20.41 3 . O ther hammer toe(s) (acquired), left foot - M20.42 4 . P ain in right foot - M79.671 5 . L eft foot pain - M79.672 Plan: * Treatment: 2. O ther hammer toe(s) (acquired), right foot Notes: Hammertoe Deformity: Discussed various treatments for hammer toes with the patient . Discussed conservative care consisting of padding, wider shoes, anti-inflammatories, and orthotics. Discussed surgical treatment options and answered all questions about the intra-operative and post-operative treatment course. Shoe Recommendation: Advised patient on appropriate shoe gear for protection, healing and good foot health. PowerStep Inserts: The patient was dispensed and fitted with over the counter arch supports. The patient was educated on their use and effect. All questions were answered. * Follow Up: p rn * Billing Information: * Visit Code: 79048 Office Visit, New Pt., Level 3. * Procedure Codes: * GN MANAGER Sign off status: Completed true * Provider: Heath Blancas DPM Date: 0 10/04/2023 Generated for Estephanie coelho/Konrad/Loganitting on: 0 09/30/2024 08:40 AM DESIGN MANAGER History and Physical Notes * HPI (History of Present Illness) Category Sub-Category Detail Notes Category Not es HPI New Complaint Patient presents for a new patient consultation., Patient complains of an issue to left G toe pain with pressure, Duration of problem is 3months., MA: EW Examination Category Sub-Category Detail Notes Category Not es Dermatologic Skin findings: Skin is warm, dr y, supple with no breaks in the skin. The left hallux has a nail spicule present in the lateral nail fold Neurologic Gross sensation Gross sensation is intact to light touch Vascular Dorsalis pedis pulse: 2/4, bilateral Edema: No edema, bilateral Capillary refill: less than 3 seconds Posterior tibial pulse: 2/4, bilaterally Musculoskeletal Muscle Strength Muscle strength is 5/5 in regards to dorsiflexion, plantarflexion, inversion, and eversion in bilateral lower extremities Hammertoes Dorsally contracted digits 2-5 bilateral. The deformity is flexible and reducible Constitutional Constitutional The patient is a wake, alert, well developed, well groomed and well nourished
--- OUTSIDE RECORDS SUMMARY | 2024-09-30 08:40 | XMS_ITS | Clinical Summary ---
Author Organization [facility] Address [address] [place] [address] Care Team Providers Care Production Stage Manager Name Role Phone Unavailable Primary Care Provider Unavailabl e Social History Tobacco Use Types Packs/Day Years Used Date Smoking Tobacco: Never Assessed Comments Unknown Sex and Gender Information Value Date Recorded Sex Assigned at Not on file Legal Sex Female 7:41 PM CDT Gender Identity Not on file Sexual Orientation Not on file Plan of Treatment Health Maintenance Due Date Last Done Comments Cervical Cancer Screening Pa p Smear (Age 30 to 64) Every 3 Years 1963 Colorectal Cancer Screening Colonoscopy (10 Years) 1963 Annual Physical 1966 Hepatitis C 1981 DTaP, Tdap and Td Vaccines ( 1 - Tdap) 1982 Cervical Cancer Screening Pa p with HPV Testing (Age 30 to 64) Every 5 Years 1993 Cervical Cancer Screening with HPV 1993 Mammogram Screening 2003 Zoster Vaccines (1 of 2) 2013 COVID-19 Vaccine (2023-2 5 season) 2024 Influenza Adult (#1) 2024 RSV Immunization or 60+ Years (1 - 1-dose 75+ series) 2038 Meningococcal B Vaccine Aged Out No l onger eligible based on patient's age to complete this topic Meningococcal Vaccine Aged Out No isabel rizwana eligible based on patient's age to complete this topic Pneumococcal Vaccine: Pediat rics (0 to 5 Years) and At-Risk Patients (6 to 64 Years) Aged Out No longer eligible b ased on patient's age to complete this topic RSV Immunizations Under 20 Months Aged Out No longer eligible based on patient's age to complete this topic
--- OUTSIDE RECORDS SUMMARY | 2024-09-30 08:40 | XMS_ITS ---
Care Plan - [facility] Created on: September 30, 2024 DENYS SHAW : 1965 Sex: Female Author Organization [facility] Address [address] [place] [address] Phone Care Team Providers Care Ski Guide Name Role Phone ILA BROWN, ZOLTAN Primary Care Provider [phone] LUL[address] BROWN, [place] [phone]
--- OUTSIDE RECORDS SUMMARY | 2024-09-30 08:40 | XMS_ITS | Clinical Summary ---
Author Organization [facility] Building Address [address] [place] [address] Care Team Providers Care Manager Pharmacy Name Role Phone Virgilio Prabhakar MD Primary Care Provider [phone] Virgilio Prabhakar MD Unavailable [phone] Allergies No known active allergies Medications [...] 500 mg tablet 9 Active HYDROcodone-acet aminophen ([place]) 5-325 mg per tabletIndication s:Pain Take 1 [...] with unrestricted hearing of left ear 02/01/2018 Surgical History Surgery Date Site/Laterality Comments MYRINGOTOMY W/ TUBES Myringotomy - With Ventilating Tube Insertion - (Added by TW Conv) Medical History Medical History Date Comments Other specified health status No known problems - (Added by TW Conv) Social History Tobacco Use Types Packs/Day Years Used Date Smoking Tobacco: Never Personal Safety Answer Date Recorded Getting School Help Needed Not on file 08/06 Comments Unknown Sex and Gender Information Value Date Recorded Sex Assigned at Not on file Legal Sex Female 9:51 PM IT APPLICATION ADMINISTRATOR Gender Identity Not on file Sexual Orientation Not on file Obstetrics History Last Filed Vital Signs Vital Sign Reading Time Taken Comments Blood Pressure 138/81 08/27/2017 9:13 AM IT APPLICATION ADMINISTRATOR Pulse 65 08/27/2017 9:13 AM IT APPLICATION ADMINISTRATOR Temperature 36.6 C (97.9 F) 08/27/2017 9:13 AM IT APPLICATION ADMINISTRATOR Respiratory Rate - - Oxygen Saturation 99% 08/27/2017 9:13 AM IT APPLICATION ADMINISTRATOR Inhaled Oxygen Concentration - - Weight 65.8 kg (145 lb) 08/27/2017 9:13 AM IT APPLICATION ADMINISTRATOR Height 162.6 cm (5' 4 ) 08/27/2017 9:13 AM IT APPLICATION ADMINISTRATOR Body Mass Index 24.89 08/27/2017 9:13 AM IT APPLICATION ADMINISTRATOR Plan of Treatment Health Maintenance Due Date Last Done Comments Breast Cancer Screening-Mammogram 1965 Cervical Cancer Screening 1963 Colon Cancer Screening-Colonoscopy 1963 Depression Screening 1963 Hepatitis C Screening 1963 Hepatitis B Screening 1981 Regular Well Visit/Exam 18-64 1981 Zoster Vaccine (1 of 2) 2013 Influenza Vaccine (#1) 2024 DTaP/Tdap/Td Vaccine (2 - Td or Tdap) 02/15/2027 02/15/2017 Pneumococcal vaccine <65 Aged Out No longer eligible based on patient's age to complete this topic Insurance [employer] CHOICE Care Teams Manager Pharmacy Relationship Specialty Start Date End Date Virgilio Prabhakar MD PCP - General 10/25/17 Virgiloi Prabhakar MD Referring Physician Internal Medicine 12/12/18
--- OUTSIDE RECORDS SUMMARY | 2024-09-30 08:40 | XMS_ITS ---
Author Organization [facility] Address [address] [place] [address] Phone Care Team Providers Care Biometrics Specialist Name Role Phone ILA BROWN, ZOLTAN Primary Care Provider [phone] LULU BROWN, [facility] [phone] Plan of Treatment No Plan of Treatment Recorded Assessments Includes: Assessments for all patient encounters No Assessments Recorded Medical Equipment - Implanted Devices Includes: Current and historical Devices No Medical Equipment Recorded Medications Administered Includes: Administered Medications in patient's chart No Administered Medications Recorded Results Includes: Results from 09/30/2023 through 09/30/2024 No Results Recorded For Specified Dates History of Present Illness History of Present Illness not supported for this document type No History of Present Illness Recorded Social History No Social History Recorded - Smoking Status Unknown Medical History Includes: Medical History in patient's chart No Medical History Recorded Family History Includes: Family History in patient's chart No Family History Recorded Review of Systems Review of Systems not supported for this document type No Review of Systems Recorded Mental Status No Mental Status Recorded Functional Status No Functional Status Recorded Physical Exam Physical Exam not supported for this document type No Physical Exam Recorded Insurance Includes: Active Insurance Policies Plan Name Member ID Group # Subscriber Relationship Effect petr Dates 1 - [facility] [id number] DENYS SHAW Self Clinical Notes Includes: Signed Clinical Notes starting from 09/11/2022 No Clinical Notes Recorded
[2024-09-30 08:54] LABS: Hematocrit 39.6 % (35.0-49.0); Hemoglobin 12.8 g/dL (12.0-15.0); Mean Corpuscular HGB Conc 32.3 g/dL (32-36); Mean Corpuscular Hemoglobin 30.4 pg (27.0-31.0); Mean Corpuscular Volume 94.1 fL (78.0-102.0); Mean Platelet Volume 8.8 fl (9.2-11.8); Platelet Count Result 400 K/mm3 (150-420); Red Blood Count 4.21 M/mm3 (4.20-5.40); Red Cell Distribution Width 12.6 % (11.6-14.4); White Blood Count 4.4 K/mm3 (4.8-10.8)
[2024-09-30 09:21] LABS: Alanine Aminotransferase 23 U/L (14-59); Albumin Level 3.7 g/dL (3.4-5.0); Alkaline Phosphatase 123 U/L (46-116); Anion Gap 6 mmol/L (4-12); Aspartate Amino Transferase 14 U/L (15-37); Bilirubin,Total 0.4 mg/dL (0.00-1.00); Blood Urea Nitrogen 12 mg/dL (7-18); Calcium 9.3 mg/dL (8.5-10.1); Carbon Dioxide 31 mmol/L (21-32); Chloride 104 mmol/L (98-108); Cholesterol 268 mg/dL (0-200); Estimated Glomerular Filt Rate > 60; Free T4 Free Thyroxine 0.69 ng/dL (0.76-1.46); Glucose 91 mg/dL (70-99); HDL Direct 50 mg/dL (40-60); LDL Cholesterol Calculated 165 mg/dL (<130); Osmolality Calculated 291 mOsm/kg (285-295); Potassium 4.6 mmol/L (3.5-5.1); Sodium 141 mmol/L (136-145); Total Protein 7.2 g/dL (6.4-8.2); Triglycerides 264 mg/dL (0-150)
[2024-09-30 09:24] LABS: Add Urine Microscopic? YES; Appearance Urine Clear (Clear); Bilirubin Urine Negative (Negative); Blood Urine Negative (Negative); Color Urine Light Yellow (Yellow); Glucose Urine UA Negative (Negative); Ketones Urine Negative (Negative); Leukocyte Esterase Ur 2+ (Negative); Nitrate Urine Positive (Negative); Protein Urine Negative (Negative); Urobilinogen Urine 0.2 mg/dL (0.2-1.0)
[2024-09-30 09:37] LABS: Bacteria Urine 3+ /hpf; RBC Urine None seen /hpf (0-2); Squamous Epithelial Cell Urine Few /hpf (Few)
== END 2024-09-30 08:35 | disposition home or self-care (01) ==
PROVIDERS: PCP Internal Medicine; Visit Provider Internal Medicine
DX: M54.50 Low back pain, unspecified (principal); M25.551 Pain in right hip
CPT/HCPCS: 36415; 72100; 80053; 80061; 81001; 84439; 84443; 85027

== ENCOUNTER 2024-10-16 08:49 | Outpatient (CLI) | payer BC, SELFPAY ==
--- NOTE | ~2024-10-16 | MM_ITS ---
EXAMINATION: MM screening elia BI w marbin HISTORY: Screening mammogram TECHNIQUE: Craniocaudal and mediolateral oblique 3-D tomosynthesis images were obtained and synthetic 2-D images were generated. CAD analysis was submitted and interpreted. COMPARISON: 07/24/2023, 11/08/2020 BREAST PARENCHYMAL COMPOSITION:Not Dense. There are scattered areas of fibroglandular density. FINDINGS: No suspicious mass, calcification, or architectural distortion are identified in either neetu ast to suggest malignancy. There has been no suspicious interval change. IMPRESSION: No mammographic evidence of malignancy. Recommend routine screening mammography in one year. BI-RADS Category 1: Negative Reviewed, dictated and finalized at location . CHECKER
--- OUTSIDE RECORDS SUMMARY | 2024-10-16 09:22 | XMS_ITS | Patient Health Record ---
Author Organization [facility] Address [address] [place], [place] [id number] Care Team Providers Care Manager Ecommerce Name Role Phone Virgilio Prabhakar Unavailable Unavailable Allergies No Known Allergies Reason For Referral No Information Plan Of Treatment No Information Insurance Providers Payer Name Payer Address Payer Phone Subscriber Number Group Number Insured Name Patient Relationship to Insured Coverage Start Date Coverage End Date [facility] ([facility]) ATTN CLAIMS [address] [place] [address] [id number] Ruma Copeland Self - patient is the insured
--- OUTSIDE RECORDS SUMMARY | 2024-10-16 09:22 | XMS_ITS | Clinical Summary ---
Author Organization [facility] Address [address] [place] [address] Care Team Providers Care Infrastructure Consultant Name Role Phone Virgilio Prabhakar MD Primary Care Provider [phone] Virgilio Prabhakar MD Unavailable [phone] Allergies No known active allergies Medications [...] 500 mg tablet 9 Active HYDROcodone-acet aminophen ([place]) 5-325 mg per tabletIndication s:Pain Take 1 [...] on file Legal Sex Female 9:51 PM CHARHOUSE WORKER Gender Identity Not on file Sexual Orientation Not on file Obstetrics History Last Filed Vital Signs Vital Sign Reading Time Taken Comments Blood Pressure 138/81 08/27/2017 9:13 AM CHARHOUSE WORKER Pulse 65 08/27/2017 9:13 AM CHARHOUSE WORKER Temperature 36.6 C (97.9 F) 08/27/2017 9:13 AM CHARHOUSE WORKER Respiratory Rate - - Oxygen Saturation 99% 08/27/2017 9:13 AM CHARHOUSE WORKER Inhaled Oxygen Concentration - - Weight 65.8 kg (145 lb) 08/27/2017 9:13 AM CHARHOUSE WORKER Height 162.6 cm (5' 4 ) 08/27/2017 9:13 AM CHARHOUSE WORKER Body Mass Index 24.89 08/27/2017 9:13 AM CHARHOUSE WORKER Plan of Treatment Health Maintenance Due Date [...] patient's age to complete this topic Insurance [employer] CHOICE Care Teams Infrastructure Consultant Relationship Specialty Start Date End Date Virgilio Prabhakar MD PCP - General 10/25/17 Virgilio Prabhakar MD Referring Physician Internal Medicine 12/12/18
--- OUTSIDE RECORDS SUMMARY | 2024-10-16 09:22 | XMS_ITS | Referral Summary ---
Author Organization [facility] Address [address] [place] [address] Care Team Providers Care Gear Room Keeper Name Role Phone Virgilio Prabhakar MD Primary Care Provider [phone] Virgilio Prabhakar MD Unavailable [phone] Allergies No known active allergies Medications [...] 500 mg tablet 9 Active HYDROcodone-acet aminophen ([place]) 5-325 mg per tabletIndication s:Pain Take 1 [...] on file Legal Sex Female 9:51 PM SORTING SUPERVISOR Gender Identity Not on file Sexual Orientation Not on file Last Filed Vital Signs Vital Sign Reading Time Taken Comments Blood Pressure 138/81 08/27/2017 9:13 AM SORTING SUPERVISOR Pulse 65 08/27/2017 9:13 AM SORTING SUPERVISOR Temperature 36.6 C (97.9 F) 08/27/2017 9:13 AM SORTING SUPERVISOR Respiratory Rate - - Oxygen Saturation 99% 08/27/2017 9:13 AM SORTING SUPERVISOR Inhaled Oxygen Concentration - - Weight 65.8 kg (145 lb) 08/27/2017 9:13 AM SORTING SUPERVISOR Height 162.6 cm (5' 4 ) 08/27/2017 9:13 AM SORTING SUPERVISOR Body Mass Index 24.89 08/27/2017 9:13 AM SORTING SUPERVISOR Plan of Treatment Not on file Insurance ANTHEM ACCESS CHOICE [employer] ACCESS CHOICE Care Teams Gear Room Keeper Relationship Specialty Start Date End Date Virgilio Prabhakar MD PCP - General 10/25/17 Virgilio Prabhakar MD Referring Physician Internal Medicine 12/12/18
--- OUTSIDE RECORDS SUMMARY | 2024-10-16 09:22 | XMS_ITS ---
Care Plan - [facility] Created on: October 16, 2024 DENYS SHAW : 1965 Sex: Female Author Organization [facility] Address [address] [place] [address] Phone Care Team Providers Care Glass Technologist Name Role Phone ILA BROWN, ZOLTAN Primary Care Provider [phone] LULU BROWN, [facility] [phone]
--- OUTSIDE RECORDS SUMMARY | 2024-10-16 09:22 | XMS_ITS ---
Author Organization [facility] Address [address] [place] [address] Phone Care Team Providers Care Button And Buckle Maker Name Role Phone ILA BROWN, ZOLTAN Primary Care Provider [phone] LULU BROWN, [facility] [phone] Plan of Treatment No Plan of Treatment Recorded Assessments Includes: Assessments for all patient encounters No Assessments Recorded Medical Equipment - Implanted Devices Includes: Current and historical Devices No Medical Equipment Recorded Medications Administered Includes: Administered Medications in patient's chart No Administered Medications Recorded Results Includes: Results from 10/16/2023 through 10/16/2024 No Results Recorded For Specified Dates History [...] Subscriber Relationship Effect petr Dates 1 - [facility] [id number] DENYS SHAW Self Clinical Notes Includes: Signed Clinical Notes starting from 09/11/2022 No Clinical Notes Recorded
--- OUTSIDE RECORDS SUMMARY | 2024-10-16 09:22 | XMS_ITS | Clinical Summary ---
Author Organization [facility] Address [address] [place] [address] Care Team Providers Care Credit Risk Modeler Name Role Phone Unavailable Primary Care Provider [...]
--- OUTSIDE RECORDS SUMMARY | 2024-10-16 09:23 | XMS_ITS ---
Author Organization [facility] Address [address] [place], [place] [address] Care Team Providers Care Projects Manager Name Role Phone Virgilio Prabhakar Unavailable Unavailable MADELYN BLANCAS Unavailable [phone] Allergies No Known Allergies REASON FOR VISIT [...] Location Date Provider Diagnosis [facility] [address] [place], [place] [id number] 10/04/2023 MADELYN BLANCAS Ingrowing nail L60.0 ; [...] Notes * Ruma SHAWDOB:1965 (58 yo F)Acc No.[id number]:10/04/2023 Progress Notes Patient: Ruma PAEZ Provider: Heath Blancas DPM :1965 A ge:58 Y S ex:Female Date:10/04/2023 Address:[address] [place], [place] [id number] Subjective: * Chief Complaints: * 1 . [...] rn * Billing Information: * Visit Code: 29645 Office Visit, New Pt., Level 3. * Procedure Codes: * L DESIGNER Sign off status: Completed true * Provider: Heath Blancas DPM Date: 0 10/04/2023 Generated for Estephanie coelho/Konrad/Loganitting on: 0 10/16/2024 09:22 AM LEVEL DESIGNER History and Physical Notes * HPI (History [...]
== END 2024-10-16 08:50 | disposition home or self-care (01) ==
LOC: ANHIMG 08:51
PROVIDERS: PCP Internal Medicine; Visit Provider Obstetrics & Gynecology
DX: Z12.31 Encounter for screening mammogram for malignant neoplasm of breast (principal)
CPT/HCPCS: 77063; 77067

== ENCOUNTER 2024-10-16 14:06 | Outpatient (CLI) | payer BC, SELFPAY ==
--- NOTE | ~2024-10-16 | XR_ITS ---
HISTORY: right hip pain COMPARISON: None TECHNIQUE: 2 views of the right hip FINDINGS: No acute fracture or dislocation is identified. Superior lateral sclerosis of the femoral acetabular joint space is present consistent with osteoarth ritis. Degenerative disease within the visualized portion of the lower lumbar spine. Fecal stasis within the colon. Air within the rectum. Age-appropriate mineralization. IMPRESSION: Degenerative disease without acute fracture or dislocation Reviewed, dictated and finalized at location A. ESTATE DEVELOPER
--- OUTSIDE RECORDS SUMMARY | 2024-10-16 16:25 | XMS_ITS | Referral Summary ---
Author Organization [facility] Address [address] [place] [address] Care Team Providers Care Residential Real Estate Appraiser Name Role Phone Virgilio Prabhakar MD Primary Care Provider [phone] Virgilio Prabhakar MD Unavailable [phone] Allergies No known active allergies Medications [...] 500 mg tablet 9 Active HYDROcodone-acet aminophen ([place]) 5-325 mg per tabletIndication s:Pain Take 1 [...] on file Legal Sex Female 9:51 PM COLLECTIONS CURATOR Gender Identity Not on file Sexual Orientation Not on file Last Filed Vital Signs Vital Sign Reading Time Taken Comments Blood Pressure 138/81 08/27/2017 9:13 AM COLLECTIONS CURATOR Pulse 65 08/27/2017 9:13 AM COLLECTIONS CURATOR Temperature 36.6 C (97.9 F) 08/27/2017 9:13 AM COLLECTIONS CURATOR Respiratory Rate - - Oxygen Saturation 99% 08/27/2017 9:13 AM COLLECTIONS CURATOR Inhaled Oxygen Concentration - - Weight 65.8 kg (145 lb) 08/27/2017 9:13 AM COLLECTIONS CURATOR Height 162.6 cm (5' 4 ) 08/27/2017 9:13 AM COLLECTIONS CURATOR Body Mass Index 24.89 08/27/2017 9:13 AM COLLECTIONS CURATOR Plan of Treatment Not on file Insurance [employer] ACCESS CHOICE [employer] ACCESS CHOICE Care Teams Residential Real Estate Appraiser Relationship Specialty Start Date End Date Virgilio Prabhakar MD PCP - General 10/25/17 Virgilio Prabhakar MD Referring Physician Internal Medicine 12/12/18
--- OUTSIDE RECORDS SUMMARY | 2024-10-16 16:25 | XMS_ITS ---
Care Plan - [facility] Created on: October 16, 2024 DENYS SHAW : 1965 Sex: Female Author Organization [facility] Address [address] [place] [address] Phone Care Team Providers Care Rag Cutting Machine Operator Name Role Phone ILA BROWN, ZOLTAN Primary Care Provider [phone] LULU BROWN, [place] [facility] [phone]
--- OUTSIDE RECORDS SUMMARY | 2024-10-16 16:25 | XMS_ITS ---
Author Organization [facility] Address [address] [place] [address] Phone Care Team Providers Care Marketing Communications Associate Name Role Phone ILA BROWN, ZOLTAN Primary Care Provider [phone]UL[address] BROWN, [facility] [phone] Plan of Treatment No [...] Subscriber Relationship Effect petr Dates 1 - [facility] [id number] DENYS SHAW Self Clinical Notes Includes: Signed Clinical Notes starting from 09/11/2022 No Clinical Notes Recorded
--- OUTSIDE RECORDS SUMMARY | 2024-10-16 16:25 | XMS_ITS | Clinical Summary ---
Author Organization [facility] Address [address] [place] [address] Care Team Providers Care Head Charger Name Role Phone Virgilio Prabhakar MD Primary Care Provider [phone] Virgilio Prabhakar MD Unavailable [phone] Allergies No known active allergies Medications [...] 500 mg tablet 9 Active HYDROcodone-acet aminophen ([place]) 5-325 mg per tabletIndication s:Pain Take 1 [...] on file Legal Sex Female 9:51 PM AUTOMATION LEAD Gender Identity Not on file Sexual Orientation Not on file Obstetrics History Last Filed Vital Signs Vital Sign Reading Time Taken Comments Blood Pressure 138/81 08/27/2017 9:13 AM AUTOMATION LEAD Pulse 65 08/27/2017 9:13 AM AUTOMATION LEAD Temperature 36.6 C (97.9 F) 08/27/2017 9:13 AM AUTOMATION LEAD Respiratory Rate - - Oxygen Saturation 99% 08/27/2017 9:13 AM AUTOMATION LEAD Inhaled Oxygen Concentration - - Weight 65.8 kg (145 lb) 08/27/2017 9:13 AM AUTOMATION LEAD Height 162.6 cm (5' 4 ) 08/27/2017 9:13 AM AUTOMATION LEAD Body Mass Index 24.89 08/27/2017 9:13 AM AUTOMATION LEAD Plan of Treatment Health Maintenance Due Date [...] patient's age to complete this topic Insurance [employer] CHOICE Care Teams Head Charger Relationship Specialty Start Date End Date Virgilio Prabhakar MD PCP - General 10/25/17 Virgilio Prabhakar MD Referring Physician Internal Medicine 12/12/18
--- OUTSIDE RECORDS SUMMARY | 2024-10-16 16:25 | XMS_ITS | Clinical Summary ---
Author Organization [facility] Address [address] [place] [id number] Care Team Providers Care Car Deliverer Name Role Phone Unavailable Primary Care Provider [...]
== END 2024-10-16 14:07 | disposition home or self-care (01) ==
LOC: CHSIMG 14:07
PROVIDERS: PCP Internal Medicine; Visit Provider Internal Medicine
DX: M16.11 Unilateral primary osteoarthritis, right hip (principal)
CPT/HCPCS: 73502

== ENCOUNTER 2025-07-25 11:17 | Outpatient (CLI) | payer BC, SELFPAY ==
--- NOTE | ~2025-07-25 | XR_ITS ---
EXAMINATION: XR lg joint inject/asp w image DATE: 07/25/2025 12:19 INDICATION: Right hip pain TECHNIQUE: A time-out was performed to verify the patient's name, date of , and procedure to be performed. The procedure including the risks, benefits, and alternatives was discussed with the patient. Risks discussed included bleeding and infection. The patient understood the risks and agreed to proceed. The skin overlying the right hip joint was prepped and draped in usual sterile fashion. Anesthetic was administered with 1% lidocaine subcutaneously. A 22 G needle was advanced under fluoroscopic guidance into the joint. Injection of 1 mL of Omnipaque 240 confirmed intra-articular position of the needle. Subsequently, injectate consisting of 5 mL of a 4:1 mixture of 1% lidocaine: 40 mg/mL Depo-Medrol for a total dosage of 40 mg Depo-Medrol was instilled. Washout of contrast was seen confirming intra-articular administration. The needle was removed and the entry site was cleaned and dr essed. There were no immediate complications. Fluoroscopy exposure time was 0.1 minutes. The total number of images was 1. FINDINGS: Real-time fluoroscopy demonstrates the needle in the right hip joint. Patient's pain prior to procedure:8/10. Patient's pain following the procedure: 0/10. IMPRESSION: 1. Successful right hip joint injection of local anesthetic and steroid with decrease in the patient's presenting pain. Reviewed, dictated and finalized at location A. CIGAR MAKER IMPRESSION: 1. Successful right hip joint injection of local anesthetic and steroid with de crease in the patient's presenting pain.
--- OUTSIDE RECORDS SUMMARY | 2025-07-25 13:00 | XMS_ITS | Clinical Summary ---
Author Organization [facility] Address [address] [place] [address] Care Team Providers Care Geological Engineer Name Role Phone Virgilio Prabhakar MD Primary Care Provider [phone] Virgilio Prabhakar MD Unavailable [phone] Allergies No known active allergies Medications [...] 500 mg tablet 9 Active HYDROcodone-acet aminophen ([place]) 5-325 mg per tabletIndication s:Pain Take 1 [...] Q2dys until gone 42 tablet 3 Active amoxicillin-clav ulanate (Augmentin) 875-125 mg per tablet Take 1 tablet by mouth 2 (two) times a day 20 tablet 4 Active methylPREDNISolo ne (MEDROL DOSEPACK) 4 mg Dosepack Take as directed on package 1 packet 4 Active ciprofloxacin-de xAMETHasone (CIPRODEX) otic suspension Administer 4 drops into each ear 2 (two) times a day 7.5 mL 2 5 Active celecoxib (CeleBREX) 200 mg capsule TAKE 1 TO 2 CAPSULES BY MOUTH EVERY DAY DIRECTED 5 Active neomycin-polymyx in-HC (CORTISPORIN) 3.5-10,000-1 mg/mL-unit/mL-% otic suspension 4 DROPS THREE TIMES DAILY 5 Active phentermine 37.5 mg capsule 37.5 MG ORALLY DAILY MUST ADMINISTER 30 MINUTES BEFORE OR 1-2 HOURS AFTER BREAKFAST 5 Active Active Problems Problem Noted Date Diagnosed Date Actinic keratosis 05/07/2025 Enterocolitis 05/07/2025 Subcutaneous mass 05/07/2025 Syncope 05/07/2025 Urinary tract infection 05/07/2025 Conductive hearing loss of r ight ear with unrestricted hearing of left ear 02/01/2018 Encounters Date Type Department Care Team Description 05/07/2025 9:00 AM CDT Procedure visit [facility] Medicine Otolaryngology [address] [place] [address] Chloe Brumfield Au.D. Conductive hearing loss of right ear with unrestricted hearing of left ear (Primary Dx) 05/07/2025 8:00 AM CDT Procedure visit [facility] [address], [address] [place] [address] Mixed conductive and sensorineural hearing loss, bilateral (Primary Dx) 05/07/2025 8:00 AM CDT Office Visit [facility] [address], [address] [place] [address] Amor Hudson MD Conductive hearing loss, bilateral (Primary Dx); Bilateral chronic otitis media from Last 3 Months Surgical History Surgery Date Site/Laterality Comments MYRINGOTOMY W/ TUBES Myringotomy - With Ventilating Tube Insertion - (Added by TW Conv) Medical History Medical History Date Comments Other specified health status No known problems - (Added by TW Conv) Social History Tobacco Use Types Packs/Day Years Used Date Smoking Tobacco: Never Comments Unknown Sex and Gender Information Value Date Recorded Sex Assigned at Not on file Legal Sex Female 9:51 PM ECHOCARDIOGRAPHY TECH Gender Identity Not on file Sexual Orientation Not on file Last Filed Vital Signs Vital Sign Reading Time Taken Comments Blood Pressure 138/81 08/27/2017 9:13 AM ECHOCARDIOGRAPHY TECH Pulse 65 08/27/2017 9:13 AM ECHOCARDIOGRAPHY TECH Temperature 36.6 C (97.9 F) 08/27/2017 9:13 AM ECHOCARDIOGRAPHY TECH Respiratory Rate - - Oxygen Saturation 99% 08/27/2017 9:13 AM ECHOCARDIOGRAPHY TECH Inhaled Oxygen Concentration - - Weight 65.8 kg (145 lb) 08/27/2017 9:13 AM ECHOCARDIOGRAPHY TECH Height 162.6 cm (5' 4) 08/27/2017 9:13 AM ECHOCARDIOGRAPHY TECH Body Mass Index 24.89 08/27/2017 9:13 AM ECHOCARDIOGRAPHY TECH Plan of Treatment Health Maintenance Due Date Last Done Comments Breast Cancer Screening-Mammogram 1965 Cervical Cancer Screening 1965 Colon Cancer Screening-Colonoscopy 1965 Depression Screening 1965 Hepatitis C Screening 1963 Hepatitis B Screening 1981 Regular Well Visit/Exam 18-64 1981 Zoster Vaccine (1 of 2) 2013 Influenza Vaccine (#1) 2025 DTaP/Tdap/Td Vaccine (2 - Td or Tdap) 02/15/2027 02/15/2017 Pneumococcal vaccine <65 Aged Out No longer eligible based on patient's age to complete this topic Procedures Procedure Name Priority Date/Time Associated Diagnosis Comments AUDBASE RESULTS 05/07/2025 7:56 AM CDT from Last 3 Months Results * AudBase Results (05/07/2025 7:56 AM CDT) Provider Scanning AUDIOLOGY SERVICES ORDERABLES Final Result from Last 3 Months Insurance Referral.IM Referral.IM Care Teams Geological Engineer Relationship Specialty Start Date End Date Virgilio Prabhakar MD PCP - General 10/25/17 Virgilio Prabhakar MD Referring Physician Internal Medicine 12/12/18
--- OUTSIDE RECORDS SUMMARY | 2025-07-25 13:00 | XMS_ITS | Clinical Summary ---
Author Organization [facility] Address [address] [place] [id number] Care Team Providers Care Cloud Security Architect Name Role Phone Unavailable Primary Care Provider [...] Screening with HPV 1993 Mammogram Screening 2003 Pneumococcal Vaccine: 50+ Ye ars (1 of 1 - PCV) 2013 Zoster Vaccines (1 of 2) 2013 COVID-19 Vaccine (2024-2 6 season) 2025 Influenza Adult (#1) 2025 RSV Immunization or 60+ Years (1 - 1-dose 75+ series) 2038 Hepatitis A Vaccines Aged Out No long er eligible based on patient's age to complete this topic Meningococcal B Vaccine Aged Out No l onger eligible based on patient's age to complete this topic Meningococcal Vaccine Aged Out No isabel rizwana eligible based on patient's age to complete this topic RSV Immunizations Under 20 Months Aged Out No longer eligible based on patient's age to complete this topic
== END 2025-07-25 11:18 | disposition home or self-care (01) ==
PROVIDERS: PCP Internal Medicine; Visit Provider Physician Assistant Surgical
DX: M16.11 Unilateral primary osteoarthritis, right hip (principal)
CPT/HCPCS: 20610; 77002; J1010; J2003